=== PATIENT | female | born 1975 | race Caucasian/White ===

== ENCOUNTER 2021-09-09 13:29 | Emergency (ER) | payer MEDICAID, OTHER, SELFPAY ==
[2021-09-09 13:40] VITALS: BP 121/76; PULSE 69; RESP 20; TEMP 37.1; O2SAT 99
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
== END 2021-09-09 15:08 | disposition home or self-care (01) ==
PROVIDERS: Emergency Provider Nurse Practitioner
DX: U07.1 COVID-19 (principal); T21.24XA Burn of second degree of lower back, initial encounter; W29.2XXA Contact with other powered household machinery, initial encounter
CPT/HCPCS: 16020; 10140; 87426; 99203; A9270; C9803; G0463

== ENCOUNTER 2023-07-13 16:44 | Emergency (ER) | payer OTHER, SELFPAY ==
[2023-07-13 16:52] VITALS: BP 113/65; PULSE 61; RESP 16; TEMP 36.7; O2SAT 96
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
== END 2023-07-13 18:30 | disposition home or self-care (01) ==
PROVIDERS: Emergency Provider Registered Nurse
DX: M54.16 Radiculopathy, lumbar region (principal); M54.42 Lumbago with sciatica, left side; F17.210 Nicotine dependence, cigarettes, uncomplicated; Z86.16 Personal history of COVID-19
CPT/HCPCS: 99213; G0463